=== PATIENT | male | born 1965 | race Caucasian/White ===

== ENCOUNTER → 2022-06-27 | Emergency (ER) | payer OTHER ==
[2022-06-27 10:52] VITALS: RESP 18; TEMP 98; BMI 27.8
[2022-06-27 11:49] VITALS: BP 173/85; PULSE 98
== END | disposition home or self-care (01) ==
LOC: JER 10:43
DX: R03.0 Elevated blood-pressure reading, without diagnosis of hypertension (principal)
CPT/HCPCS: 93005; 93010; 99283-25